=== PATIENT | female | born 1985 | race Caucasian/White ===

== ENCOUNTER 2019-07-23 19:31 | Emergency (ER) | payer BC, SELFPAY ==
[2019-07-23 19:35] VITALS: BP 150/83; PULSE 74; RESP 16; TEMP 37.1; O2SAT 100
--- NOTE | 2019-07-23 19:41 | ED.GENADULT ---
HPI - General Adult General Chief complaint: Extremity Injury, Lower Stated complaint: swollen and tingly feet/ankles Time Seen by Provider: 07/23/19 19:41 Source: patient and RN notes reviewed Mode of arrival: ambulatory Limitations: no limitations History of Present Illness HPI narrative: This is a 34 years old female presents to the office for an evaluation of feet swelling with tingling sensation since last night. She thinks it's better today. Denies history of swollen feet in the past. Denies any other associated symptoms include shortness of breath or cough. She has an appointment with her physician in Oct. denies history of kidney or heart disease in the family.She admits to putting on extra weight since the shut down due to COVID; maybe >10lbs. Denies excessive walking/stand on her feet. Denies recent travel. Denies history of blood clot. Related Data Allergies Allergy/AdvReac Type Severity Reaction Status Date / Time No Known Allergies Allergy Unknown Verified 04/27/18 18:57 Review of Systems Review of Systems: Narrative: CONSTITUTIONAL: Denies fever or feeling ill ENT: Denies congestion CARDIOVASCULAR: Denies chest pain, palpitation. Reports lower legs edema. RESPIRATORY: Denies dyspnea, cough GASTROINTESTINAL: Denies abdominal pain, nausea, vomiting, diarrhea. GENITOURINARY: Denies urinary symptoms SKIN: Denies rash MUSCULOSKELETAL: Denies lower legs injury/trauma NEUROLOGIC: Reports tingling sensation in her feet. PMFSH Comments At time of signature, I agree with nursing past medical, surgical, social and family history. There is no relevant family history pertinent to the presenting complaint. Exam Narrative: Exam Narrative: GENERAL: This is a well-nourished, well-developed patient, in no apparent distress. CARDIOVASCULAR: Regular rate and rhythm without murmurs, gallops, or rubs. RESPIRATORY: Clear to auscultation. Breath sounds equal bilaterally. No wheezes, rales, or rhonchi. GASTROINTESTINAL: Abdomen soft, non-tender, nondistended. Bowel sounds are active. No hepato-splenomegaly, or palpable masses. No guarding. SKIN: warm, intact with no suspicious lesions or rash, good texture and turgor. NEURO: awake, alert, and oriented to person, place and time. There were no obvious focal neurologic abnormalities. Steady gait EXTREMITIES: Normal range of motion. No obvious edema. No calf tenderness. Negative Homans sign bilaterally. Johnston Coma Scale Eye Opening: Spontaneous 4 Johnston Coma Scale Motor: Obeys Commands 6 Johnston Coma Scale Verbal: Oriented 5 Medical Decision Making MDM Narrative Medical decision making narrative: Leg swelling is likely due to hypertensions or excessive weight discussed with patient. However, I strongly thinks it's due to her weight gain. Answered all of her questions and concerns. Discharge instructions reviewed with patient, as well as provided in writing per nursing staff. The instructions also include specific and strict return/GO TO THE ER as well as f/u information. All questions have been answered, and the patient deny any further questions with discharge and discharge plan. Differential Diagnosis Differential Diagnosis: Hypertension, weight gain, electrolyte imbalance, nephritis Critical Care Time Critical Care Time Critical Care Time: No Discharge Plan Discharge Clinical Impression: Swelling of lower extremity Patient Disposition: Home, Self-Care Condition: Stable Instructions: Edema (ED) Additional Instructions: I recommend leg elevation, along with compression stocking, and limited salt intake. Your blood pressure is also slightly elevated: it does not mean you have hypertension, however make sure to discuss it with him/her. Call your doctor to move your appointment time to be sooner. Follow-up/Referrals: UNKNOWN,DOCTOR [Primary Care Provider] - Time of Disposition: 19:57 Discharge Date/Time: 07/23/19 20:02
== END 2019-07-23 20:02 | disposition home or self-care (01) ==
PROVIDERS: Emergency Provider Nurse Practitioner
DX: M79.89 Other specified soft tissue disorders (principal)
CPT/HCPCS: 99211; G0463